=== PATIENT | female | born 1955 | race Caucasian/White ===

== ENCOUNTER 2017-12-31 10:43 | Emergency (ER) | payer MEDICAID ==
[~2017-12-31] VITALS: Ht 170.2 cm; Wt 75.0 kg
[2017-12-31 10:52] VITALS: Ht 170.2 cm; Wt 75.0 kg
[2017-12-31] MEDS ORDERED: CLEOCIN HCL300 MG PO (10:54)
[2017-12-31] MEDS ORDERED: NORCO 7.5/325 T1 TA1 PO (11:41)
[2017-12-31] MEDS ORDERED: AUGMENTIN 875-11 TAB PO (11:41)
[2017-12-31 13:44] LABS: BASOPHILS 0 % (0-2); EOSINOPHILS 0.2 % (0-7); HEMATOCRIT 35.1 % (36.0-48.0); HEMOGLOBIN 11.6 g/dL (12-16); LYMPHOCYTES 17.6 % (15-50); MCH 28.2 pg (26.0-34.0); MCV 85.4 fL (80.0-100.0); MONOCYTES 7.8 % (2-11); NEUTROPHILS 74.4 % (40-80); PLATELET COUNT 247 10x3/uL (130-400); RBC 4.11 10x6/uL (4.00-5.40); RDW 13.7 % (11.5-14.5); WBC 8.5 10x3/uL (4.8-10.8)
[2017-12-31 13:56] LABS: ALBUMIN 3.1 g/dL (3.4-5.0); ALKALINE PHOSPHATASE 73 U/L (46-116); ALT (SGPT) 14 U/L (10-68); BILIRUBIN - TOTAL 0.47 mg/dL (0.2-1.3); CALC OSMOLALITY 276 mosm/kg (275-300); CALCIUM 8.6 mg/dL (8.5-10.1); CARBON DIOXIDE 28.1 mmol/L (21.0-32.0); CHLORIDE - SERUM 102 mmol/L (98-107); CREATININE - SERUM 0.7 mg/dL (0.6-1.3); GLUCOSE 93 mg/dL (74-106); POTASSIUM - SERUM 3.5 mmol/L (3.5-5.1); PROTEIN - SERUM 7.1 g/dL (6.4-8.2); SODIUM 138 mmol/L (136-145); UREA NITROGEN 16 mg/dL (7-18); eGFR NON AFRICAN AMERICAN 90 mL/min (90-120)
[2017-12-31 15:02] VITALS: BP 131/75
== END 2017-12-31 15:00 | disposition home or self-care (01) ==
LOC: D.ER 10:43
PROVIDERS: Emergency Medicine
DX: K08.89 Other specified disorders of teeth and supporting structures (principal); L02.01 Cutaneous abscess of face

== ENCOUNTER 2018-01-06 12:12 | Emergency (ER) | payer MEDICAID ==
[~2018-01-06] VITALS: Ht 170.2 cm; Wt 75.0 kg
[~2018-01-06 12:12] MED LIST: AUGMENTIN 875-11 TAB PO; CLEOCIN HCL300 MG PO; NORCO 7.5/325 T1 TA1 PO
[2018-01-06 12:22] VITALS: Ht 170.2 cm; Wt 75.0 kg
[2018-01-06] MEDS ORDERED: VOLTAREN75 MG PO (14:05)
[2018-01-06] MEDS ORDERED: ROBAXIN-750750 MG PO (14:05)
[2018-01-06 14:53] VITALS: BP 130/70
== END 2018-01-06 14:54 | disposition home or self-care (01) ==
LOC: D.ER 12:12
DX: S20.219A Contusion of unspecified front wall of thorax, initial encounter (principal); V43.62XA Car passenger injured in collision with other type car in traffic accident, initial encounter; Y93.89 Activity, other specified; Y92.410 Unspecified street and highway as the place of occurrence of the external cause